=== PATIENT | male | born 1985 | race Caucasian/White ===

== ENCOUNTER → 2017-08-02 | Outpatient (CLI) | payer SELFPAY ==
--- NOTE | 2017-08-02 12:52 | REP ---
REASON: Hypertension. COMPARISON: 03/04/2011. FINDINGS: The superior mediastinal structures are midline. The cardiac silhouette is unremarkable in size, shape, and position. The diaphragmatic surfaces of the lungs are regular, and the costophrenic angles are clear. The pulmonary barrientos are clear. The imaged osseous structures are intact. IMPRESSION: There is no acute cardiopulmonary disease. No change from the prior exam. Signed by Tashi Begum DO 08/02/2017 01:38 P
[2017-08-02 13:38] LABS: ALBUMIN 4.2 GM/DL (3.2-5.2); ALBUMIN/GLOBULIN RATIO 1.35 (1.00-1.93); ALKALINE PHOSPHATASE 85 U/L (45-117); ALT/SGPT 32 U/L (12-78); ANION GAP 9 MEQ/L (8-16); AST/SGOT 13 U/L (7-37); BILIRUBIN,TOTAL 0.8 MG/DL (0.2-1.0); BLOOD UREA NITROGEN 11 MG/DL (7-18); CARBON DIOXIDE LEVEL 27 MEQ/L (21-32); CHLORIDE LEVEL 106 MEQ/L (98-107); CHOLESTEROL LEVEL 123 MG/DL (<200); CREATININE FOR GFR 0.89 MG/DL (0.70-1.30); GLOMERULAR FILTRATION RATE > 60.0 (>60); GLUCOSE, FASTING 79 MG/DL (70-105); POTASSIUM SERUM 3.9 MEQ/L (3.5-5.1); SODIUM LEVEL 142 MEQ/L (136-145); TOTAL PROTEIN 7.3 GM/DL (6.4-8.2); TRIGLYCERIDES LEVEL 83 MG/DL (<150)
--- NOTE | 2017-08-05 01:13 | ECGEPIP ---
Stationary ECG Study [facility] Test Date: 2017-08-02 Pat Name: CANDACE TONY Department: Room: - Gender: M Vp Ancillary: VICENTE : 1985 Requested By: Dane Ocampo Order Number: [id number] Reading MD: Jos Cox Measurements Intervals [place] Rate: 76 P: 20 VA: 175 QRS: 14 QRSD: 93 T: 17 QT: 350 QTc: 396 Interpretive Statements SINUS RHYTHM Nonspecific ST-T abnormality manifested by repolarization abnormality. Compared to the last 3 tracings, no significant changes Electronically Signed On 08-05-2017 1:13:06 EST by Jos Cox
== END ==
LOC: M LAB 11:07
PROVIDERS: ATTEND Family Medicine Addiction Medicine
DX: I10 Essential (primary) hypertension (principal)

== ENCOUNTER 2022-09-02 14:51 | Emergency (ER) | payer MEDICAID, SELFPAY ==
[~2022-09-02] VITALS: Ht 185.4 cm; Wt 88.3 kg
[2022-09-02 14:52] VITALS: BP 158/62
== END 2022-09-03 01:00 | disposition left against medical advice (07) ==
LOC: M ED 14:51
DX: Z53.21 Procedure and treatment not carried out due to patient leaving prior to being seen by health care provider (principal)

== ENCOUNTER 2025-08-04 00:21 | Emergency (ER) | payer BC, MEDICAID, SELFPAY ==
[~2025-08-04] VITALS: Ht 185.4 cm; Wt 95.8 kg
[2025-08-04 02:32] VITALS: TEMP 97.3
[2025-08-04 03:39] VITALS: BP 190/105
[2025-08-04] MEDS: amLODIPine 10 MG TAB PO ONE (03:39)
[2025-08-04] MEDS ORDERED: AMLO25TA PO (05:30)
[2025-08-04] MEDS ORDERED: DEBR6.5S4 OTIC (05:30)
[2025-08-04 06:30] VITALS: O2SAT 97
[2025-08-04 06:34] VITALS: BP 216/112
== END 2025-08-04 06:51 | disposition home or self-care (01) ==
LOC: M ED 00:21
DX: H61.23 Impacted cerumen, bilateral (principal); I10 Essential (primary) hypertension